=== PATIENT | female | born 1990 | race Caucasian/White ===

== ENCOUNTER → 2017-09-08 | Outpatient (CLI) | payer BC ==
[~2017-09-08] MED LIST: MISO200 PO; OXYACE5T PO; Zofran4 MG PO
== END | disposition home or self-care (01) ==
LOC: LAB 18:46 → LAB SHORT 18:46
PROVIDERS: Obstetrics & Gynecology
DX: Z01.419 Encounter for gynecological examination (general) (routine) without abnormal findings (principal)
CPT/HCPCS: G0123

== ENCOUNTER 2019-01-06 15:19 | Inpatient (IN) | payer BC ==
[~2019-01-06] VITALS: Ht 167.6 cm; Wt 101.0 kg
[2019-01-08 13:17] LABS: BASOPHILS ABSOLUTE AUTO 0.02 K/mm3 (0.00-0.23); BASOPHILS PERCENT AUTO 0 % (0-2); EOSINOPHILS ABSOLUTE AUTO 0.13 K/mm3 (0.00-0.68); EOSINOPHILS PERCENT AUTO 1 % (0-6); Hematocrit 37.1 % (33.0-51.0); Hemoglobin 11.9 g/dL (11.5-16.0); IMMATURE GRAN ABSOLUTE AUTO 0.03 K/mm3 (0.00-0.10); IMMATURE GRAN PERCENT AUTO 0 % (0-1); LYMPHOCYTES ABSOLUTE AUTO 1.34 K/mm3 (0.84-5.20); LYMPHOCYTES PERCENT AUTO 15 % (21-46); MONOCYTES ABSOLUTE AUTO 0.84 K/mm3 (0.16-1.47); MONOCYTES PERCENT AUTO 9 % (4-13); Mean Corpuscular HGB 27.9 pg (26.0-34.0); Mean Corpuscular HGB Conc 32.1 g/dL (31.5-36.5); Mean Corpuscular Volume 87 fL (80-100); NEUTROPHILS ABSOLUTE AUTO 6.65 K/mm3 (1.96-9.15); NEUTROPHILS PERCENT AUTO 74 % (41-73); Platelet Count 252 K/mm3 (150-400); RDW Coefficient Variation 14.3 % (11.7-14.2); RDW Standard Deviation 44.8 fL (35.1-46.3); Red Blood Cell Count 4.27 M/mm3 (3.80-5.20); White Blood Cell Count 9.01 K/mm3 (4.00-11.30)
[2019-01-09 08:07] LABS: PCO2 Cord - Arterial 52.6 mmHg (40-50); PO2 Cord - Arterial < 13 mmHg (16-20)
[2019-01-09 08:08] LABS: PCO2 Cord - Venous 43.8 mmHg (40-50); PO2 Cord - Venous 23.4 mmHg (28-32); pH Umbilical Cord - Venous 7.34 (7.26-7.35)
--- NOTE | 2019-01-09 08:13 | NUR ---
01/09/19 0813 Miroslava Reardon REPEAT SECTION WITH VIABLE FEMALE . WEIGHT 7-12 ([id number]). APGARS 9/9. CORD SEGEMENT GIVEN TO RT. CORD BLOOD GIVEN TO BABY RN.
--- NOTE | 2019-01-09 08:38 | NUR ---
PT TO PACU FROM OR FOR REPEAT SECTION. PT DENIES PAIN AT THIS TIME. BIANCA PADS CHANGED. DRESSING IS C/D/I. FUNDAL MASSAGE DONE, FUNDUS FIRM WITH SCANT LOCIA. ABD ON. PAS ON. INFANT TO MOM.
[2019-01-10 05:24] LABS: BASOPHILS ABSOLUTE AUTO 0.03 K/mm3 (0.00-0.23); BASOPHILS PERCENT AUTO 0 % (0-2); EOSINOPHILS ABSOLUTE AUTO 0.15 K/mm3 (0.00-0.68); EOSINOPHILS PERCENT AUTO 2 % (0-6); Hematocrit 33.7 % (33.0-51.0); Hemoglobin 10.8 g/dL (11.5-16.0); IMMATURE GRAN ABSOLUTE AUTO 0.03 K/mm3 (0.00-0.10); IMMATURE GRAN PERCENT AUTO 0 % (0-1); LYMPHOCYTES ABSOLUTE AUTO 1.28 K/mm3 (0.84-5.20); LYMPHOCYTES PERCENT AUTO 14 % (21-46); MONOCYTES ABSOLUTE AUTO 0.82 K/mm3 (0.16-1.47); MONOCYTES PERCENT AUTO 9 % (4-13); Mean Corpuscular HGB 27.6 pg (26.0-34.0); Mean Corpuscular Volume 86 fL (80-100); Mean Platelet Volume 10.1 fL (9.1-12.4); NEUTROPHILS ABSOLUTE AUTO 7.04 K/mm3 (1.96-9.15); NEUTROPHILS PERCENT AUTO 75 % (41-73); Platelet Count 220 K/mm3 (150-400); RDW Coefficient Variation 14.6 % (11.7-14.2); RDW Standard Deviation 45.8 fL (35.1-46.3); Red Blood Cell Count 3.92 M/mm3 (3.80-5.20); White Blood Cell Count 9.35 K/mm3 (4.00-11.30)
[2019-01-11] MEDS ORDERED: Percocet 5-3251 EACH PO (09:07)
[2019-01-11] MEDS ORDERED: IBUP800 PO (09:08)
--- NOTE | 2019-01-11 09:44 | NUR ---
DISCHARGE INSTRUCTIONS, WRITTEN AND VERBAL, GIVEN TO PT AND DENISE. ANSWERED ALL QUESTIONS AND CONCERNS. WRITTEN PRESCRIPTIONS GIVEN TO PT. IV DISCONTINUED. ALL PERSONAL BELONGINGS RETURNED. PT IS READY FOR DISCHARGE.
== END 2019-01-11 11:45 | disposition home or self-care (01) | DRG 788 ==
LOC: BC 01-09 05:34
PROVIDERS: ADMIT Obstetrics & Gynecology
PROC: 10D00Z1 Extraction of Products of Conception, Low, Open Approach (ICD-10-PCS; principal; 2019-01-09 07:30)
DX: O34.211 Maternal care for low transverse scar from previous cesarean delivery (principal); Z3A.39 39 weeks gestation of pregnancy; Z37.0 Single live birth; O69.81X0 Labor and delivery complicated by cord around neck, without compression, not applicable or unspecified
CPT/HCPCS: 36415; 82803; 85025; 86850; 86900; 86901; J0694; J1885; J2370; J2590; J2765; J7120